=== PATIENT | female | born 1965 | race Caucasian/White ===

== ENCOUNTER 2019-05-26 17:09 | Emergency (ER) | payer OTHER ==
[~2019-05-26] VITALS: Ht 147.3 cm; Wt 74.8 kg
[2019-05-26 17:15] VITALS: BP_SYST 161
--- NOTE | 2019-05-26 17:23 | NUR ---
Patient triaged and placed in waiting room. VSS and patient appears in no acute distress at this time. Accompanied by daughter, awaiting available bed, and MD notified of need for MSE.
--- NOTE | 2019-05-26 18:49 | NUR ---
Patient left without being seen.
== END 2019-05-26 18:50 | disposition left against medical advice (07) ==
LOC: SED 17:09
DX: S01.111A Laceration without foreign body of right eyelid and periocular area, initial encounter (principal); Z53.21 Procedure and treatment not carried out due to patient leaving prior to being seen by health care provider; W18.09XA Striking against other object with subsequent fall, initial encounter; Y93.89 Activity, other specified; Y92.091 Bathroom in other non-institutional residence as the place of occurrence of the external cause; Y99.8 Other external cause status